=== PATIENT | male | born 1985 ===

== ENCOUNTER 2025-04-01 21:06 | Emergency (ER) | payer SELFPAY ==
[2025-04-01] MEDS: Diphtheria,Pertussis(Acell),Tetanus Vaccine 0.5 ML Syringe IM ONE (22:22)
[2025-04-01] MEDS: ceFAZolin 2 GM in Water For Injection, Sterile 20 ML IVPUSH ONE (23:43)
[2025-04-01] MEDS: Ondansetron 4 MG Tab.DIS PO ONE (23:58)
== END 2025-04-02 00:45 | disposition home or self-care (01) ==
LOC: MW.ED 21:06
DX: S62.521B Displaced fracture of distal phalanx of right thumb, initial encounter for open fracture (principal); Z23 Encounter for immunization; Z75.3 Unavailability and inaccessibility of health-care facilities; W23.1XXA Caught, crushed, jammed, or pinched between stationary objects, initial encounter; Y93.89 Activity, other specified; Y99.0 Civilian activity done for income or pay
CPT/HCPCS: 12002; 73140-26-F5; 73140-F5; 90471; 90715; 96374; 99283; 99283-25; A4216; A9270-GY; J0690; J2003